=== PATIENT | male | born 1980 | race Caucasian/White ===

== ENCOUNTER 2020-11-23 05:06 | Emergency (ER) | payer SELFPAY ==
[~2020-11-23] VITALS: Ht 170.2 cm; Wt 55.7 kg
[~2020-11-23 05:06] MED LIST: CITA40TA12 PO; CLON2TAB PO; DIVA500T2 PO; FLUO40CA9 PO; GABA800T5 PO; HYDR50CA PO; MELA3TAB31 PO; OLAN10TA3 PO; OLAN5TAB9 PO; OXYC1TAB14 PO; SULF-169 PO; TRAZ50TA66 PO
[2020-11-23 05:43] VITALS: BP 122/82
--- NOTE | 2020-11-23 05:53 | NUR ---
PT C/O OF RIGHT EAR PAIN X 6 MONTHS AND NEW EAR PAIN IN LEFT EAR. 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 WOULD YOU BE ABLE TO GET ME NEEDLES AND SYRINGES." AFTER THIS NURSE SAID NO I CANNOT DO THAT HE CONTINUED TO LAY IN BED. AFTER COVER SEAMER WENT INTO ROOM TO DRAW BLOOD HE ASKED THE COVER SEAMER THE SAME QUESTION. AFTER COVER SEAMER SAID NO PT ELOPED AND LEFT THE FACILITY WITH STEADY GAIT.
== END 2020-11-23 05:57 | disposition left against medical advice (07) ==
LOC: ED 05:15
DX: H92.01 Otalgia, right ear (principal); R10.11 Right upper quadrant pain; H66.91 Otitis media, unspecified, right ear
CPT/HCPCS: 99281

== ENCOUNTER 2020-11-26 03:08 | Emergency (ER) | payer SELFPAY ==
[~2020-11-26] VITALS: Ht 170.2 cm; Wt 55.1 kg
[2020-11-26 03:11] VITALS: BP 114/74
--- NOTE | 2020-11-26 03:20 | NUR ---
PT TO BE SEEN IN TRIAGE BY PROVIDER, PT THEN BECAME AGGRESSIVE WITH BODY LANGUAGE WELL VERBAL AGGRESSION TOWARD STAFF. PT EDUCATED ON INAPPROPRIATE BEHAVIOR PT NOT RECEPTIVE AND ESCORTED OUT WITH SECURITY.
== END 2020-11-26 03:30 | disposition home or self-care (01) ==
LOC: ED 03:24
DX: Z00.00 Encounter for general adult medical examination without abnormal findings (principal); Z72.9 Problem related to lifestyle, unspecified; F10.10 Alcohol abuse, uncomplicated; F15.10 Other stimulant abuse, uncomplicated; Y90.0 Blood alcohol level of less than 20 mg/100 ml
CPT/HCPCS: 99281